=== PATIENT | male | born 2000 | race Caucasian/White ===

== ENCOUNTER 2021-07-02 15:47 | Emergency (ER) | payer OTHER ==
[~2021-07-02] VITALS: Ht 188 cm; Wt 86.4 kg
[2021-07-02] MEDS ORDERED: BACTRIM DS 8001 TAB PO (17:36)
[2021-07-02 17:52] VITALS: BP 130/85; PULSE 118; TEMP 98.5
== END 2021-07-02 17:56 | disposition home or self-care (01) ==
LOC: COL.ER 15:47
DX: L05.01 Pilonidal cyst with abscess (principal)